=== PATIENT | male | born 1945 | race Caucasian/White ===

== ENCOUNTER → 2017-04-07 15:16 | Outpatient (CLI) | payer MEDICARE, OTHER, SELFPAY ==
--- NOTE | 2017-04-07 15:30 | RAD_ITS ---
STUDY: X-RAY - LUMBAR SPINE REASON FOR EXAM: Male, 71 years old. Back pain TECHNIQUE: 3 view(s) of the lumbar spine were obtained. COMPARISON: None FINDINGS: Normal lumbar lordosis. There is no substantial scoliosis. There is a normal alignment of the vertebrae. There is multilevel endplate spondylosis of the lumbar vertebrae. There is multi-level degenerative disc disease with multi-level disc space narrowing. There are atherosclerotic vascular calcifications. The soft tissue structures are unremarkable. RAD/Lumbar Spine 2 or 3 Views IMPRESSION: Degenerative changes of the spine, as detailed above. Electronically Signed: Jaydon Murray MD at 16:46 EST , Service support ,
== END ==
PROVIDERS: Family Provider Family Medicine; PCP Family Medicine; Visit Provider Anesthesiology Pain Medicine
DX: M54.5 Low back pain (principal)
CPT/HCPCS: 72100

== ENCOUNTER 2017-05-25 07:36 | Outpatient (RCR) | payer MEDICARE, OTHER, SELFPAY ==
[2017-05-04 15:36] LABS: Prothrombin Time Fingerstick 35.3 SEC (11.9-14.4)
[2017-05-25 07:55] LABS: Prothrombin Time Fingerstick 45.1 SEC (11.9-14.4)
[2017-05-25 08:23] LABS: Prothrombin Time (Protime)PT. 35.8 SECONDS (11.7-14.9)
[2017-05-25 08:25] LABS: International Normalized Ratio 3.6
== END 2017-05-25 08:00 | disposition home or self-care (01) ==
LOC: LAB 07:36
PROVIDERS: Family Provider Family Medicine; PCP Family Medicine; Visit Provider Internal Medicine Cardiovascular Disease
DX: I48.0 Paroxysmal atrial fibrillation (principal); Z79.01 Long term (current) use of anticoagulants
CPT/HCPCS: 36415; 36416; 85610

== ENCOUNTER 2017-08-05 07:00 | Outpatient (RCR) | payer MEDICARE, OTHER, SELFPAY ==
[2017-08-05 07:16] LABS: Prothrombin Time Fingerstick 40.3 SEC (11.9-14.4)
== END 2017-08-05 08:00 | disposition home or self-care (01) ==
LOC: LAB 07:00
PROVIDERS: Family Provider Family Medicine; PCP Family Medicine; Visit Provider Internal Medicine Cardiovascular Disease
DX: I48.2 Chronic atrial fibrillation (principal); Z79.01 Long term (current) use of anticoagulants
CPT/HCPCS: 36415; 36416; 85610

== ENCOUNTER 2017-08-17 07:01 | Outpatient (RCR) | payer MEDICARE, OTHER, SELFPAY ==
[2017-08-17 07:41] LABS: Prothrombin Time Fingerstick 26.1 SEC (11.9-14.4)
== END 2017-08-17 08:00 | disposition home or self-care (01) ==
LOC: LAB 07:01
PROVIDERS: Family Provider Family Medicine; PCP Family Medicine; Visit Provider Internal Medicine Cardiovascular Disease
DX: I48.2 Chronic atrial fibrillation (principal); Z79.01 Long term (current) use of anticoagulants
CPT/HCPCS: 36416; 85610

== ENCOUNTER 2017-09-30 07:14 | Outpatient (RCR) | payer MEDICARE, OTHER, SELFPAY ==
[2017-09-30 07:30] LABS: Prothrombin Time Fingerstick 30.5 SEC (11.9-14.4)
== END 2017-09-30 08:00 | disposition home or self-care (01) ==
LOC: LAB 07:14
PROVIDERS: Family Provider Family Medicine; PCP Family Medicine; Visit Provider Internal Medicine Cardiovascular Disease
DX: I48.2 Chronic atrial fibrillation (principal); Z79.01 Long term (current) use of anticoagulants
CPT/HCPCS: 36416; 85610

== ENCOUNTER 2017-10-19 04:12 | Emergency (ER) | payer MEDICARE, OTHER, SELFPAY ==
[2017-10-19 04:13] VITALS: BP 148/71; PULSE 107; RESP 20; TEMP 37; O2SAT 96; BMI 28.6
--- NOTE | 2017-10-19 04:43 | ED.DCSUM_ITS ---
- ER Visit Summary Date of Service: 10/19/17 Chief Complaint: Nausea, vomiting and diarrhea History of Present Illness: The patient is a 72 M history of end-stage renal disease and dialysis. He had a full dialysis run on Wednesday. Patient is also had a history of prior stroke, [place] with CAD and stents. History of A. fib on Coumadin. Prior appendectomy. States after dinner tonight he had nausea and vomiting and a small amount of diarrhea. No hematemesis. No melena. No fever. No significant abdominal pain. He has been able to hold limited liquids down since around 5:00. Physical Examination: Older male vital signs stable afebrile. No distress. Does not look septic or toxic. Mildly dehydrated. H EENT exam unremarkable atraumatic. No facial droop. Normal speech. Mildly dry mucous membranes. Neck nontender. Lungs clear to auscultation bilaterally. Heart irregularly irregular history of A. fib. Rate about 100. Abdomen soft, nontender, nondistended normal bowel sounds no peritoneal signs. No signs of obstruction. He is moving all 4 extremities. No significant edema in the lower extremities. He has a dialysis shunt in his right upper extremity with a thrill. Neurologically is awake and alert with no focal motor deficits. Test Results: CBC shows normal white count of 5. Hemoglobin is 12. Platelet count of 101,000. Previously platelet counts that were lower than that. Electrolytes unremarkable. Gap of 15. BUN is 33 creatinine 6.2. Patient's on Coumadin his INR is elevated 3.8. He and I and his discussed all his test results. He will hold his Coumadin today and have his level rechecked. Emergency Department Course and Treatment: Treated with 500 cc normal saline bolus. Zofran for nausea. P.o. fluid challenge. Treatment Plan: Patient is doing well at 05 40. He has been able to hold down p.o. fluids. And will be discharged home with Zofran home pack. Disposition: Discharge Impression: Acute nausea, vomiting and diarrhea secondary to viral gastroenteritis Mild dehydration Supratherapeutic anticoagulation with an INR 3.8. History of end-stage renal disease dialysis. History of chronic anemia This note was generated with [employer] dictation software. It may contain incorrect words, spelling, and punctuation that were not noted in review of the chart prior to signing ED Disposition - Plan for ED Patient: Chief Complaint: Nausea/Vomiting Referrals: Ke Gutierrez [Primary Care Provider] -
[2017-10-19] MEDS: Ondansetron 4 MG/2 ML Vial IV (04:47)
[2017-10-19 04:48] LABS: Absolute Lymphocyte Count 0.25 X10^3/ul (0.83-4.51); Absolute Neutrophil Count 5.1 X10^3/uL (2.0-7.7); Basophil# 0.01 X10^3/uL; Basophil% 0.2 % (0-1); Differential Indicated SCAN CRITERIA MET; Eosinophil# 0.01 X10^3/uL; Eosinophils% 0.2 % (0-5); Hematocrit 38.3 % (40-54); Hemoglobin 12.4 g/dl (13.0-16.5); Lymphocyte # 0.25 X10^3/ul (4.0); Lymphocyte % 4.4 % (19-41); Mean Corp Hgb Conc 32.4 g/gl (32-36); Mean Corpuscular Hgb 33.8 pg (27.0-32.0); Mean Corpuscular Volume 104.4 fL (80-94); Mean Platelet Vol. 9.8 fl (6.2-12.0); Monocyte# 0.34 X10^3/uL; Neutrophil # 5.07 X10^3/uL (2.7-7.7); Neutrophil % 89.2 % (47-70); POSITIVE COUNT NO; POSITIVE DIFFERENTIAL YES; POSITIVE MORPHOLOGY NO; Platelet Count 101 K/mm3 (150-450); RBC Distribution Width CV 14.6 % (11.6-14.6); RBC Distribution Width SD 55.8 fl (35.1-43.9); Red Blood Count 3.67 M/mm3 (4.6-6.2); White Blood Count 5.7 K/mm3 (4.4-11.0)
[2017-10-19 04:51] LABS: International Normalized Ratio 3.8; Prothrombin Time (Protime)PT. 37.6 SECONDS (11.7-14.9)
[2017-10-19 04:58] LABS: Anion Gap 15 (5-15); BUN 33 mg/dL (7-18); BUN/Creat Ratio 5.3 RATIO (10-20); Calcium,Total 8.3 mg/dL (8.5-10.1); Chloride 98 mmol/L (98-107); Creatinine, Serum 6.22 mg/dL (0.70-1.30); EST Glomerular Filtration Rate 9 mL/min (>60); Est Glom Filt Rate - Afr Amer 11 mL/min (>60); Estimated Creatinine Clearance 10.92 ml/min; Glucose 175 mg/dL (74-106); Potassium 3.7 mmol/L (3.5-5.1); Sodium Level 142 mmol/L (136-145)
[2017-10-19 05:08] LABS: Anisocytosis 1+; Macrocytosis 1+; Platelet Estimate SLT DEC (ADEQ)
--- NOTE | 2017-10-19 05:46 | ED.DEP ---
ED Disposition - Plan for ED Patient: Disposition: Home or Assisted Living Chief Complaint: Nausea/Vomiting Instructions: ED Gastroenteritis Viral Prescriptions: Ondansetron [Zofran Odt] 4 mg PO Q4H PRN PRN #7 tab.rapdis PRN Reason: Nausea Referrals: Ke Gutierrez [Primary Care Provider] - As Needed Additional Instructions: Zofran as needed for nausea. Plenty of fluids and rest. Hold your Coumadin dose today. Your Coumadin level was too high at 3.8. That will need to be rechecked this week and preferably before you restart your Coumadin.
[2017-10-19] MEDS: Ondansetron ODT 4 MG Tablet PO (05:56)
[2017-10-19 05:57] VITALS: BP 107/72; PULSE 91; RESP 23; O2SAT 93
== END 2017-10-19 05:59 | disposition home or self-care (01) ==
PROVIDERS: Emergency Provider Emergency Medicine; Family Provider Family Medicine; PCP Family Medicine
DX: A08.4 Viral intestinal infection, unspecified (principal); R11.2 Nausea with vomiting, unspecified; R19.7 Diarrhea, unspecified; E86.0 Dehydration; N18.6 End stage renal disease; D64.9 Anemia, unspecified; I48.91 Unspecified atrial fibrillation; I25.10 Atherosclerotic heart disease of native coronary artery without angina pectoris; I25.2 Old myocardial infarction; Z99.2 Dependence on renal dialysis; Z86.73 Personal history of transient ischemic attack (TIA), and cerebral infarction without residual deficits; Z85.89 Personal history of malignant neoplasm of other organs and systems; Z79.01 Long term (current) use of anticoagulants; Z79.899 Other long term (current) drug therapy
CPT/HCPCS: 80048; 85025; 85610; 96361; 96374; 99283; J7030; J7040; A4216; J2405

== ENCOUNTER 2017-10-28 07:28 | Outpatient (RCR) | payer MEDICARE, OTHER, SELFPAY ==
[2017-10-28 07:45] LABS: Prothrombin Time Fingerstick 19.1 SEC (11.9-14.4)
[2017-10-28 10:54] LABS: Amphetamine Urine VISTA NEGATIVE (<1000 ng/mL); Barbiturate Urine VISTA NEGATIVE (< 200 ng/mL); Benzodiazepine Urine VISTA NEGATIVE (< 200 ng/mL); Cocaine Urine VISTA NEGATIVE (< 300 ng/mL); Ecstacy Urine VISTA NEGATIVE (< 500 ng/mL); Methadone Urine VISTA NEGATIVE (< 300 ng/mL); PCP Urine VISTA NEGATIVE (< 25 ng/mL); THC Urine VISTA NEGATIVE (< 50 ng/mL); Vista UDS pH Range 8
== END 2017-10-28 09:00 | disposition home or self-care (01) ==
LOC: LAB 07:28
PROVIDERS: Family Provider Family Medicine; PCP Family Medicine; Visit Provider Internal Medicine Cardiovascular Disease
DX: I48.2 Chronic atrial fibrillation (principal); Z79.01 Long term (current) use of anticoagulants; F11.20 Opioid dependence, uncomplicated
CPT/HCPCS: 36416; 80307; 85610

== ENCOUNTER → 2017-11-25 12:19 | Outpatient (CLI) | payer MEDICARE, OTHER, SELFPAY ==
--- NOTE | 2017-11-25 12:21 | ECHOD_ITS ---
Reason For Study: CAD/ASHD Procedure This was a 2D Doppler, Color Flow transthoracic echocardiogram. Exam performed in department. Left Ventricle Normal LV size. Moderate concentric left ventricular hypertrophy. The estimated ejection fraction is 60 %. Stage 3 diastolic dysfunction. No regional wall motion abnormalities noted. Right Ventricle Normal RV size. Normal systolic function. Atria The left atrium is moderately enlarged. The right atrium is moderately enlarged. Mitral Valve Normal mitral valve. Mild-Moderate (1-2+) eccentric mitral valve insufficiency. Tricuspid Valve Normal tricuspid valve. Mild tricuspid valve insufficiency. Aortic Valve Normal aortic valve. Trisinus/trileaflet aortic valve. Mild (1+) eccentric aortic valve insufficiency. Pulmonic Valve Normal pulmonic valve. Mild (1+) pulmonic valve insufficiency. Great Vessels Mild to moderately dilated aortic root. The pulmonary artery is normal size. Normal inferior vena cava. Pericardium/Pleural No pericardial effusion. MMode/2D Measurements & Calculations LVIDd: 4.6 cm IVSd: 1.6 cm LVOT diam: 2.0 cm LVIDs: 3.0 cm LVPWd: 1.4 cm LVOT area: 3.3 cm2 RVDd: 3.8 cm FS: 36.4 % Ao root diam: 4.0 cm LAV(MOD-bp): 116.8 ml LA A4 area: 30.4 cm2 LA dimension: 4.7 cm LAV(MOD-bp) Indexed: 56.6 ml/m2 LAV(MOD-sp2): 120.3 ml LAV(MOD-sp4): 111.4 ml RA A4 area: 27.9 cm2 Time Measurements MV dec time: 0.17 sec Doppler Measurements & Calculations MV E max aura: 120.0 cm/sec MV V2 max: 115.8 cm/sec MV P1/2t max aura: 115.2 cm/sec MV A max aura: 32.0 cm/sec MV max P.4 mmHg MV P1/2t: 62.0 msec MV E/A: 3.8 MV V2 mean: 63.1 cm/sec MV dec slope: 543.8 cm/sec2 MV mean P.9 mmHg MVA(P1/2t): 3.5 cm2 MV V2 VTI: 22.1 cm MVA(VTI): 3.3 cm2 Ao V2 max: 153.2 cm/sec AI max aura: 347.5 cm/sec LV V1 max: 104.2 cm/sec Ao max P.4 mmHg AI max P.3 mmHg LV V1 max P.3 mmHg Ao V2 mean: 100.5 cm/sec AI dec slope: 237.1 cm/sec2 LV V1 mean P.2 mmHg Ao mean P.6 mmHg AI P1/2t: 429.2 msec LV V1 mean: 67.6 cm/sec Ao V2 VTI: 29.0 cm LV V1 VTI: 22.5 cm CAROL(I,D): 2.6 cm2 CAROL(V,D): 2.2 cm2 SV(LVOT): 74.0 ml PA V2 max: 74.0 cm/sec TR max aura: 266.3 cm/sec TR max P.4 mmHg Interpretation Summary Normal LV size. Moderate concentric left ventricular hypertrophy. The estimated ejection fraction is 60 %. Stage 3 diastolic dysfunction. No regional wall motion abnormalities noted. Mild-Moderate (1-2+) eccentric mitral valve insufficiency. Mild tricuspid valve insufficiency. Ordering Physician: Malvin Tavarez Referring Physician: Ke Gutierrez Performed By: Oswald Alarcon RCS
== END ==
PROVIDERS: Family Provider Family Medicine; PCP Family Medicine; Visit Provider Internal Medicine Cardiovascular Disease
DX: I25.10 Atherosclerotic heart disease of native coronary artery without angina pectoris (principal)
CPT/HCPCS: 93306

== ENCOUNTER 2017-11-25 13:22 | Outpatient (RCR) | payer MEDICARE, OTHER, SELFPAY ==
[2017-11-25 13:46] LABS: Prothrombin Time Fingerstick 22.3 SEC (11.9-14.4)
== END 2017-11-25 15:00 | disposition home or self-care (01) ==
LOC: LAB 13:22
PROVIDERS: Family Provider Family Medicine; PCP Family Medicine; Visit Provider Internal Medicine Cardiovascular Disease
DX: I48.2 Chronic atrial fibrillation (principal); Z79.01 Long term (current) use of anticoagulants; I25.10 Atherosclerotic heart disease of native coronary artery without angina pectoris
CPT/HCPCS: 36416; 85610; 93306

== ENCOUNTER 2018-05-12 09:31 | Outpatient (RCR) | payer MEDICARE, OTHER, SELFPAY ==
[2017-11-18 15:25] VITALS: BMI 28.1
== END 2018-05-12 10:31 | disposition home or self-care (01) ==
LOC: LAB 09:31
PROVIDERS: Family Provider Family Medicine; PCP Family Medicine; Referring Provider Internal Medicine Cardiovascular Disease; Visit Provider Internal Medicine Cardiovascular Disease
DX: I48.2 Chronic atrial fibrillation (principal); Z79.01 Long term (current) use of anticoagulants
CPT/HCPCS: 36416; 85610

== ENCOUNTER 2018-06-28 09:06 | Outpatient (RCR) | payer MEDICARE, OTHER, SELFPAY ==
[2017-11-18 15:25] VITALS: BMI 28.1
[2018-06-28 09:21] LABS: Prothrombin Time Fingerstick 26.9 SEC (11.9-14.4)
== END 2018-07-05 14:10 | disposition home or self-care (01) ==
LOC: LAB 09:06
PROVIDERS: Family Provider Family Medicine; PCP Family Medicine; Referring Provider Internal Medicine Cardiovascular Disease; Visit Provider Internal Medicine Cardiovascular Disease
DX: I48.2 Chronic atrial fibrillation (principal); Z79.01 Long term (current) use of anticoagulants
CPT/HCPCS: 36416; 85610

== ENCOUNTER 2018-08-30 14:16 | Outpatient (RCR) | payer MEDICARE, OTHER, SELFPAY ==
[2017-11-18 15:25] VITALS: BMI 28.1
[2018-08-25 14:14] LABS: Prothrombin Time (Protime)PT. 46.1 SECONDS (11.7-14.9)
[2018-08-25 14:24] LABS: International Normalized Ratio 4.9
[2018-08-30 14:31] LABS: Prothrombin Time Fingerstick 19.6 SEC (11.9-14.4)
== END 2018-08-30 15:00 | disposition home or self-care (01) ==
LOC: LAB 14:16
PROVIDERS: Family Provider Family Medicine; PCP Family Medicine; Referring Provider Internal Medicine Cardiovascular Disease; Visit Provider Internal Medicine Cardiovascular Disease
DX: I48.2 Chronic atrial fibrillation (principal); Z79.01 Long term (current) use of anticoagulants
CPT/HCPCS: 36415; 36416; 85610

== ENCOUNTER 2018-09-29 13:48 | Outpatient (RCR) | payer MEDICARE, OTHER, SELFPAY ==
[2017-11-18 15:25] VITALS: BMI 28.1
[2018-09-06 16:01] LABS: Prothrombin Time Fingerstick 23.7 SEC (11.9-14.4)
== END 2018-10-06 06:31 | disposition home or self-care (01) ==
LOC: LAB 13:48
PROVIDERS: Family Provider Family Medicine; PCP Family Medicine; Referring Provider Internal Medicine Cardiovascular Disease; Visit Provider Internal Medicine Cardiovascular Disease
DX: I48.2 Chronic atrial fibrillation (principal); Z79.01 Long term (current) use of anticoagulants
CPT/HCPCS: 36416; 85610

== ENCOUNTER 2018-10-11 09:35 | Outpatient (RCR) | payer MEDICARE, OTHER, SELFPAY ==
[2017-11-18 15:25] VITALS: BMI 28.1
[2018-10-12 09:00] LABS: Prothrombin Time Fingerstick 16.9 SEC (11.9-14.4)
== END 2018-10-11 11:00 | disposition home or self-care (01) ==
LOC: LAB 09:35
PROVIDERS: Family Provider Family Medicine; PCP Family Medicine; Referring Provider Internal Medicine Cardiovascular Disease; Visit Provider Internal Medicine Cardiovascular Disease
DX: I48.2 Chronic atrial fibrillation (principal); Z79.01 Long term (current) use of anticoagulants
CPT/HCPCS: 36416; 85610

== ENCOUNTER 2018-11-22 09:48 | Outpatient (RCR) | payer MEDICARE, OTHER, SELFPAY ==
[2017-11-18 15:25] VITALS: BMI 28.1
[2018-11-22 11:14] LABS: Prothrombin Time Fingerstick 31.4 SEC (11.9-14.4)
== END 2018-11-22 11:00 | disposition home or self-care (01) ==
LOC: LAB 09:48
PROVIDERS: Family Provider Family Medicine; PCP Family Medicine; Referring Provider Internal Medicine Cardiovascular Disease; Visit Provider Internal Medicine Cardiovascular Disease
DX: I48.2 Chronic atrial fibrillation (principal); Z79.01 Long term (current) use of anticoagulants
CPT/HCPCS: 36416; 85610

== ENCOUNTER 2019-01-05 08:02 | Outpatient (RCR) | payer MEDICARE, OTHER, SELFPAY ==
[2018-11-22 10:04] VITALS: BMI 26.6
== END 2019-01-05 18:00 | disposition home or self-care (01) ==
LOC: LAB 08:02
PROVIDERS: Family Provider Family Medicine; PCP Family Medicine; Referring Provider Internal Medicine Cardiovascular Disease; Visit Provider Internal Medicine Cardiovascular Disease
DX: I48.20 Chronic atrial fibrillation, unspecified (principal); Z79.01 Long term (current) use of anticoagulants
CPT/HCPCS: 36416; 85610

== ENCOUNTER 2019-01-13 07:10 | Emergency (ER) | payer MEDICARE, OTHER, SELFPAY ==
[2018-11-22 10:04] VITALS: BMI 26.6
[2019-01-13 07:11] VITALS: BP 109/52; PULSE 45; RESP 16; TEMP 36.4; O2SAT 95; BMI 26.9
[2019-01-13 07:14] VITALS: BP 109/52; PULSE 45; RESP 16; TEMP 36.4; O2SAT 95
[2019-01-13 07:20] VITALS: PULSE 146
[2019-01-13 07:21] VITALS: O2SAT 97
--- NOTE | 2019-01-13 07:26 | ED.RN ---
PT AND FAMILY REFUSES ALL TESTS, JUST WANTS A HOSPICE REFERRAL. MADE AWARE.
--- NOTE | 2019-01-13 08:20 | ED.VISSUMM ---
- ER Visit Summary Date of Service: 01/13/19 Chief Complaint: Shortness of breath History of Present Illness: The patient is a 73 M with shortness of breath. He has end-stage renal disease and is in dialysis. He has had increasing shortness of breath despite modifications to his dialysis regimen. He is having an increasingly difficult time at home, and is interested in hospice care because he wants to stop dialysis. Family confirmed this story. Physical Examination: Afebrile. Tachycardic. Otherwise vitals unremarkable. Alert and oriented. Head and neck atraumatic. Heart irregular. Lungs clear. Abdomen soft. Fistula normal. Skin normal. Test Results: None performed Emergency Department Course and Treatment: Patient refused any diagnostic testing or treatment. Hospice was contacted and the nurse evaluated the patient in the ED. The patient and his family agreed that he wants to stop dialysis. They understand the ramifications. They are interested in hospice care. The nurse believes the patient is appropriate for inpatient hospice care and is working on transfer. Patient accepted to Hospice under Dr. Delta Siegel. Treatment Plan: As above Disposition: Transfer to hospice Impression: 1. Shortness of breath 2. End-stage renal disease This note was generated with [employer] dictation software. It may contain incorrect words, spelling, and punctuation that were not noted in review of the chart prior to signing ED Disposition - Plan for ED Patient: Referrals: Ke Gutierrez [Primary Care Provider] -
[2019-01-13 09:33] VITALS: RESP 16
== END 2019-01-13 09:35 | disposition skilled nursing facility (03) ==
LOC: ED 07:28
PROVIDERS: Emergency Provider Emergency Medicine; Family Provider Family Medicine; PCP Family Medicine
DX: R06.02 Shortness of breath (principal); I12.0 Hypertensive chronic kidney disease with stage 5 chronic kidney disease or end stage renal disease; N18.6 End stage renal disease; Z99.2 Dependence on renal dialysis; I25.10 Atherosclerotic heart disease of native coronary artery without angina pectoris; I48.91 Unspecified atrial fibrillation; E78.00 Pure hypercholesterolemia, unspecified; Z87.891 Personal history of nicotine dependence; Z79.01 Long term (current) use of anticoagulants; Z79.899 Other long term (current) drug therapy
CPT/HCPCS: 99285